=== PATIENT | male | born 1980 | race African-American/Black ===

== ENCOUNTER 2016-08-03 09:46 | Inpatient (IN) | payer BC ==
[~2016-08-03] VITALS: Ht 185.4 cm; Wt 114.2 kg
[2016-08-04] MEDS ORDERED: IBUP200C PO (10:51)
[2016-08-31] MEDS: CHLORHEXIDINE GLUCONATE 4% SOLN 120 ML BTL TOP SCH (05:45)
[2016-08-31 05:54] VITALS: BP 161/81; PULSE 87; RESP 20; TEMP 98.7; O2SAT 100
[2016-08-31] MEDS ORDERED: INSULIN HUMAN REGULAR 1,000 UNITS/10 ML VIAL SQ PRN (06:00)
[2016-08-31] MEDS ORDERED: METOPROLOL TARTRATE 25 MG TAB PO PRN (06:00)
[2016-08-31] MEDS ORDERED: ceFAZolin 2 GM PREMIX 50 ML IV SCH (06:00)
[2016-08-31] MEDS ORDERED: MIDAZOLAM HCL 5 MG/5 ML VIAL ONE (06:35)
[2016-08-31] MEDS ORDERED: ACETAMINOPHEN 1000 MG/100 ML VIAL IV ONE (06:54)
[2016-08-31] MEDS ORDERED: FAMOTIDINE 20 MG/2 ML VIAL ONE (06:54)
[2016-08-31] MEDS: TRANEXAMIC ACID INJ 1,135 MG in SODIUM CHLORIDE 0.9% INJ 100 ML IV SCH ×2 (07:00→07:32)
[2016-08-31] MEDS: EXPAREL PERI-ARTICULAR INJECTION (TOTAL VOL. 100 ML) P-ARTICULR SCH ×4 (07:00→07:45)
[2016-08-31] MEDS ORDERED: LACTATED RINGER'S 1000 ML IV SCH (07:00)
[2016-08-31] MEDS ORDERED: SODIUM CHLORID 0.9% 500 ML IV SCH (07:00)
[2016-08-31] MEDS ORDERED: GENTAMICIN SULFATE 80 MG/2 ML VIAL IRRIGATION ONE (08:12)
[2016-08-31] MEDS ORDERED: ZOLPIDEM TARTRATE 5 MG TAB PO PRN (10:00)
[2016-08-31] MEDS ORDERED: ACETAMINOPHEN/HYDROcodone 325 MG/7.5 MG TAB PO PRN (10:00)
[2016-08-31] MEDS ORDERED: TRANEXAMIC ACID INJ 0 MG in SODIUM CHLORIDE 0.9% INJ 100 ML IV SCH (10:00)
[2016-08-31] MEDS ORDERED: TRANEXAMIC ACID INJ 1,135 MG in SODIUM CHLORIDE 0.9% INJ 100 ML IV SCH (10:00)
[2016-08-31] MEDS ORDERED: MORPHINE SULFATE 4 MG/ML INJ IV PUSH PRN (10:00)
[2016-08-31] MEDS ORDERED: MAGNESIUM HYDROXIDE SUSP 30 ML CUP PO PRN (10:00)
[2016-08-31] MEDS ORDERED: SODIUM CHLORIDE 0.9% FLUSH 5 ML FLUSH IVF PRN (10:00)
[2016-08-31] MEDS ORDERED: ONDANSETRON HCL 4 MG/2 ML VIAL IVP PRN (10:00)
[2016-08-31] MEDS ORDERED: DO NOT ADM ANY ANTICOAGULANT DRUGS XX PRN (10:15)
[2016-08-31] MEDS ORDERED: Post-op Orders (for Pharmacy) MISC XX ONE (10:15)
[2016-08-31] MEDS ORDERED: fentaNYL CITRATE 250 MCG/5 ML AMP ONE (10:20)
[2016-08-31] MEDS: LACTATED RINGER'S 1000 ML INJ 1,000 ML IV SCH ×2 (10:38→21:54)
[2016-08-31] MEDS: KETOROLAC TROMETHAMINE 30 MG/ML (IVP) VIAL IVP SCH ×3 (10:52→21:54)
--- NOTE | 2016-08-31 10:57 | RADRPT ---
EXAM DATE/TIME: 08/31/2016 10:17 [place] COMPARISON: No previous studies available for comparison. INDICATIONS : Knee pain. Post right knee replacement MEDICAL HISTORY : None. SURGICAL HISTORY : None. ENCOUNTER: Initial ACUITY: 1 day PAIN SCORE: 0/10 LOCATION: Right knee FINDINGS & CONCLUSION; Two view examination of the right knee demonstrates the patient has had a total knee arthroplasty. T his is in excellent position. Tibial spaces are good position. There is no complication. Luis Manuel Hill MD on August 31, 2016 at 10:54 Board Certified Radiologist. This report was verified electronically.
[2016-08-31] MEDS ORDERED: *LABETALOL HCL 100 MG/20 ML VIAL PERIprocedural Use ONLY ONE (11:35)
[2016-08-31] MEDS ORDERED: LACTATED RINGER'S 1000 ML INJ 1,000 ML IV ONE (12:00)
[2016-08-31] MEDS ORDERED: ONDANSETRON HCL 4 MG/2 ML VIAL IV PUSH ONE (12:00)
[2016-08-31] MEDS ORDERED: NEOSTIGMINE 3 MG/3 ML SYR IV ONE (12:00)
[2016-08-31] MEDS ORDERED: PROPOFOL 200 MG/20 ML AMP IV ONE (12:00)
[2016-08-31] MEDS ORDERED: *ENALAPRILAT 1.25 MG/ML VIAL PERIprocedural Use ONLY ONE (12:09)
[2016-08-31] MEDS ORDERED: ROPIVACAINE 0.5% PF INJ 30 ML VIAL NB ONE (12:27)
[2016-08-31] MEDS ORDERED: DEXAMETHASONE SOD PHOS PF 10 MG/ML VIAL IV ONE (12:27)
[2016-08-31 12:50] VITALS: BP 131/89; PULSE 93; RESP 16; TEMP 97.5; O2SAT 100
[2016-08-31 16:00] VITALS: BP 142/78; PULSE 67; RESP 16; TEMP 98; O2SAT 94
--- NOTE | 2016-08-31 16:55 | PD.CONS ---
HPI Service [facility] Consult Requested By Dr. Rodriguez Reason for Consult Medical management Primary Care Physician Sesar Ball M.D. Diagnoses: (1) Primary osteoarthritis of right knee (2) Sickle cell trait History of Present Illness 36-year-old male who sustained a right knee injury while playing football 2 years ago and has been having issues with right knee pain since then. Apparently the patient developed significant osteoarthritis on the right knee. He has been having severe issue with the knee to the point where he failed conservative measures and was admitted to the hospital for right total knee replacement. Patient is seen postop. I reviewed all available medical record in the EMR. He reports a history of sickle cell trait. Previously was seen by a brim flexer. He has no active issue related to the sickle cell trait. Currently he is feeling well. Pain is controlled. He denies nausea or vomiting. Review of Systems Constitutional: DENIES: Fever, Chills Musculoskeletal: COMPLAINS OF: Joint pain, Stiffness Integumentary: DENIES: Rash Other All other systems reviewed and are negative. Past Family Social History Allergies: Coded Allergies: No Known Allergies (Verified , 08/31/16) Past Medical History Sickle cell trait Past Surgical History Right total knee arthroplasty Reported Medications Reported Meds & Active Scripts Active Reported Ibuprofen 200 Mg Cap 200 Mg PO Q4H PRN Family History Reviewed and noncontributory. Social History Patient denies tobacco, alcohol, or illicit drug use. Physical Exam Vital Signs Vital Signs Date Time Temp Pulse Resp B/P Pulse Ox O2 Delivery O2 Flow Rate FiO2 08/31/16 12:56 Nasal Cannula 2.00 08/31/16 12:50 97.5 93 16 131/89 100 08/31/16 12:30 92 16 149/86 99 Nasal Cannula 2 08/31/16 12:15 98.3 98 13 164/92 99 Nasal Cannula 2 08/31/16 12:00 89 18 174/99 99 Nasal Cannula 2 08/31/16 11:30 80 12 184/86 99 Nasal Cannula 2 08/31/16 11:15 86 12 171/98 99 Nasal Cannula 2 08/31/16 11:00 75 12 171/96 99 Nasal Cannula 2 08/31/16 10:45 85 19 155/94 98 Nasal Cannula 2 08/31/16 10:30 94 17 172/93 98 Nasal Cannula 2 08/31/16 10:15 98 18 155/86 95 Nasal Cannula 2 08/31/16 10:12 98.1 94 15 177/88 96 Simple Mask 6 08/31/16 06:45 78 16 146/88 99 08/31/16 06:30 78 16 169/91 99 08/31/16 06:25 99 Nasal Cannula 3 08/31/16 06:25 99.0 83 16 157/97 99 08/31/16 05:54 98.7 87 20 161/81 100 Physical Exam GENERAL: This is a well-nourished, well-developed patient, in no apparent distress. SKIN: No rashes, ecchymoses or lesions. Cool and dry. HEAD: Atraumatic. Normocephalic. No temporal or scalp tenderness. EYES: Pupils equal round and reactive. Extraocular motions intact. No scleral icterus. No injection or drainage. ENT: Nose without bleeding, purulent drainage or septal hematoma. Throat without erythema, tonsillar hypertrophy or exudate. Uvula midline. Airway patent. NECK: Trachea midline. No JVD or lymphadenopathy. Supple, nontender, no meningeal signs. CARDIOVASCULAR: Regular rate and rhythm without murmurs, gallops, or rubs. RESPIRATORY: Clear to auscultation. Breath sounds equal bilaterally. No wheezes , rales, or rhonchi. GASTROINTESTINAL: Abdomen soft, non-tender, nondistended. No hepato-splenomegaly , or palpable masses. No guarding. MUSCULOSKELETAL: Right knee is in a postop splint. There is a drain in place. Neurovascularly intact at the toes. NEUROLOGICAL: Awake and alert. Cranial nerves II through XII intact. Motor and sensory grossly within normal limits. Five out of 5 muscle strength in all muscle groups. Normal speech. Laboratory Laboratory Tests Test 08/31/16 06:00 Blood Type O NEGATIVE Antibody Screen NEGATIVE Blood Bank Comment Assessment and Plan Problem List: (1) Primary osteoarthritis of right knee ICD Code: M17.11 Status: Acute (2) Status post total right knee replacement ICD Code: Z96.651 Status: Acute (3) Sickle cell trait ICD Code: D57.3 Status: Acute Assessment and Plan 36-year-old male Patient is status post total right knee arthroplasty. - Continue routine postoperative care per orthopedics. Pain control. Patient has a drain in place. Monitor output. - Physical therapy per protocol. Sickle cell trait: Has not been an active issue for the patient. Will follow up on his H&H in the morning. GI prophylaxis: Stool softener PRN constipation. DVT PPx: Xarelto per orthopedics Jessica Stanton MD Aug 31, 2016 16:55
[2016-08-31 19:00] VITALS: BP 125/71; PULSE 97; RESP 16; TEMP 97.7; O2SAT 100
[2016-08-31] MEDS: SODIUM CHLORIDE 0.9% FLUSH 5 ML FLUSH IVF SCH (20:32)
--- NOTE | 2016-08-31 20:50 | HHI.FF ---
Face to Face Verification Diagnosis: (1) Status post total right knee replacement Physical Therapy Gait training Knee: Total knee, Protocol: Right, Gait training, Full weight bearing Right LE Weight Bearing: WB as tolerated Right LE Range of Motion: Active ROM (AROM, AAROM, PROM, PRE. ROM goal is 0 to 135 degrees. ROM in the OR was 0 to 145 degrees.) Nursing Nursing: Dressing changes Dressing Changes: Daily dressing change, Coverderm/Primapore Additional Instructions Remove steristrips on postop day 14. I have seen patient Laureano Peñaloza Jr Anatoly on 08/31/16. My clinical findings support the need for the requested home health care services because: Ltd mobility - disease progression Limited ability to care for self High risk of falls I certify that my clinical findings support that this patient is homebound because: Post-op weakness Unsteady gait/balance Unsafe to leave home unassisted Chelsi Rodriguez MD (Charles) Aug 31, 2016 20:50
[2016-09-01] VITALS (7 sets, daily range): BP systolic 113–153; BP diastolic 63–78; PULSE 88–104; RESP 16–18; TEMP 98–99.7; O2SAT 97–100
[2016-09-01] MEDS: KETOROLAC TROMETHAMINE 30 MG/ML (IVP) VIAL IVP SCH ×4 (03:47→23:18)
[2016-09-01] MEDS: CHLORHEXIDINE GLUCONATE 4% SOLN 120 ML BTL TOP SCH (05:45)
[2016-09-01 07:33] LABS: HEMATOCRIT 30.2 % (39.0-51.0)
[2016-09-01 07:39] LABS: REVIEW FLAG FINAL
--- NOTE | 2016-09-01 07:42 | PD.ONC.PN ---
Subjective Subjective Remarks I was asked to see Mr. Ledbetter postop given his history of sickle cell trait. Sickle cell trait status was confirmed on hemoglobin electrophoresis performed in July 2016. The patient is now status post right total knee replacement which was performed on 08/31/2016. He reports feeling well, denies significant pain and reports being up out of bed and walking about 170 feet yesterday. Currently, the drain is in place the right knee. Objective Data Date Time Temp Pulse Resp B/P Pulse Ox O2 Delivery O2 Flow Rate FiO2 09/01/16 04:00 98.4 91 16 122/71 100 09/01/16 00:09 98.0 100 16 138/78 100 08/31/16 19:00 97.7 97 16 125/71 100 08/31/16 18:19 Nasal Cannula 2.00 08/31/16 16:00 98.0 67 16 142/78 94 08/31/16 16:00 98.0 67 16 142/78 94 08/31/16 12:56 Nasal Cannula 2.00 08/31/16 12:50 97.5 93 16 131/89 100 08/31/16 12:30 92 16 149/86 99 Nasal Cannula 2 08/31/16 12:15 98.3 98 13 164/92 99 Nasal Cannula 2 08/31/16 12:00 89 18 174/99 99 Nasal Cannula 2 08/31/16 11:30 80 12 184/86 99 Nasal Cannula 2 08/31/16 11:15 86 12 171/98 99 Nasal Cannula 2 08/31/16 11:00 75 12 171/96 99 Nasal Cannula 2 08/31/16 10:45 85 19 155/94 98 Nasal Cannula 2 08/31/16 10:30 94 17 172/93 98 Nasal Cannula 2 08/31/16 10:15 98 18 155/86 95 Nasal Cannula 2 08/31/16 10:12 98.1 94 15 177/88 96 Simple Mask 6 Imaging Studies Last 24 hours Impressions Knee X-Ray 08/31/16 0952 Signed Impressions: Service Date/Time: Wednesday, August 31, 2016 10:17 - CONCLUSION: MD Administered Medications Medications (Trade) Dose Ordered Sig/Christina Route PRN Reason Start Time Stop Time Status Last Admin Dose Admin Lactated Ringer's (Lr 1000 ml Inj) 1,000 ml @ 80 mls/hr [id number] IV 1/31/17 09:52 08/31/16 21:54 Ketorolac Tromethamine (Toradol Inj) 15 mg Q6H IVP 08/31/16 10:00 09/02/16 04:01 09/01/16 03:47 Objective Remarks GENERAL: Young male laying in bed, no acute distress, surgical dressing on right knee, his right leg is in a machine which is bending the leg. SKIN: Warm and dry. HEAD: Normocephalic. EYES: No scleral icterus. No injection or drainage. NECK: Supple, trachea midline. No JVD or lymphadenopathy. LYMPHATIC: No adenopathy. CARDIOVASCULAR: Regular rate and rhythm without murmurs. RESPIRATORY: Breath sounds equal bilaterally. No accessory muscle use. GASTROINTESTINAL: Abdomen soft, non-tender, nondistended. EXTREMITIES: No cyanosis, or edema. MUSCULOSKELETAL: Adequate muscle tone. NEUROLOGICAL: No obvious focal deficit. Awake, alert, and oriented x3. PSYCHIATRIC: Appropriate mood and affect; insight and judgment normal. Assessment/Plan Assessment 36-year-old male postop day 1 following right total knee replacement. He has hemoglobin sickle cell trait. He has been an asymptomatic carrier, the patient's father has sickle cell disease. Preoperatively the patient underwent hemoglobin electrophoresis and a sickle cell fraction was less than 30%. His postoperative period has thus far been uncomplicated. Hemoglobin and hematocrit levels are pending from this morning. Plan 1. Hemoglobin sickle cell trait: No specific therapeutic intervention is required. I stopped in to see him as a courtesy upon the request of his orthopedic surgeon. Await biopsy/pathology results from the synovial membrane. Await hemoglobin and hematocrit levels, he wants to be managed no different than any of the patient with postoperative anemia. Anticoagulation per orthopedics protocol for DVT prophylaxis. [place] Begum MD Sep 01, 2016 07:42
--- NOTE | 2016-09-01 07:42 | PD.ORT.PN ---
Subjective Post Op Day #: 1 Subjective Remarks He is doing well. There is very little pain at this time. Range of Motion -10 to 90 degrees. Distance Walked 120 feet. Objective Vitals Vital Signs Date Time Temp Pulse Resp B/P Pulse Ox O2 Delivery O2 Flow Rate FiO2 09/01/16 04:00 98.4 91 16 122/71 100 09/01/16 00:09 98.0 100 16 138/78 100 08/31/16 19:00 97.7 97 16 125/71 100 08/31/16 18:19 Nasal Cannula 2.00 08/31/16 16:00 98.0 67 16 142/78 94 08/31/16 16:00 98.0 67 16 142/78 94 08/31/16 12:56 Nasal Cannula 2.00 08/31/16 12:50 97.5 93 16 131/89 100 08/31/16 12:30 92 16 149/86 99 Nasal Cannula 2 08/31/16 12:15 98.3 98 13 164/92 99 Nasal Cannula 2 08/31/16 12:00 89 18 174/99 99 Nasal Cannula 2 08/31/16 11:30 80 12 184/86 99 Nasal Cannula 2 08/31/16 11:15 86 12 171/98 99 Nasal Cannula 2 08/31/16 11:00 75 12 171/96 99 Nasal Cannula 2 08/31/16 10:45 85 19 155/94 98 Nasal Cannula 2 08/31/16 10:30 94 17 172/93 98 Nasal Cannula 2 08/31/16 10:15 98 18 155/86 95 Nasal Cannula 2 08/31/16 10:12 98.1 94 15 177/88 96 Simple Mask 6 I/O 08/31/16 08/31/16 08/31/16 09/01/16 09/01/16 09/01/16 07:00 15:00 23:00 07:00 15:00 23:00 Intake Total 2085 ml 922 ml 1244 ml Output Total 840 ml 880 ml 670 ml Balance 1245 ml 42 ml 574 ml Intake Oral 555 ml 480 ml 480 ml IV Total 330 ml 442 ml 764 ml Other 1200 ml Output Urine Total 700 ml 400 ml Drainage Total 140 ml 180 ml 270 ml Estimated Blood Loss 700 ml # Voids 2 # Bowel Movements 0 0 0 Imaging Knee x-ray looks good. Last 24 hours Impressions Knee X-Ray 08/31/16 0952 Signed Impressions: Service Date/Time: Wednesday, August 31, 2016 10:17 - CONCLUSION: Objective Remarks He is resting comfortably, supine in bed, in the CPM. The original dressing is dry and intact. The neurovascular status is intact. Assessment & Plan Ortho Post Op Day #: 1 Problem List: (1) Status post total right knee replacement Plan: Continue postop care and PT. We have discussed the operative findings and procedure. Assessment and Plan Condition: Good. Orthopaedically stable. DVT prophylaxis: CARROLL stockings, sequentials, mobilization, Exparel. I have discussed the patient with Dr. Begum. His input is appreciated. Discharge plans: home with [facility], probably tomorrow. He has an appointment. Chelsi Rodriguez MD (Charles) Sep 01, 2016 07:42
[2016-09-01] MEDS ORDERED: WALKER WHEELS/F1 MIS (08:10)
[2016-09-01] MEDS ORDERED: MISC-163 (08:10)
[2016-09-01] MEDS ORDERED: HYDR-3580 PO (08:12)
[2016-09-01] MEDS ORDERED: XARE10TA PO (08:12)
[2016-09-01] MEDS: SODIUM CHLORIDE 0.9% FLUSH 5 ML FLUSH IVF SCH ×2 (09:27→20:36)
[2016-09-01] MEDS: RIVAROXABAN 10 MG TAB PO SCH (09:27)
[2016-09-01] MEDS: LACTATED RINGER'S 1000 ML INJ 1,000 ML IV SCH ×2 (10:52→23:22)
[2016-09-01] MEDS: ACETAMINOPHEN/HYDROcodone 325 MG/7.5 MG TAB PO PRN (13:37)
--- NOTE | 2016-09-01 16:13 | HHI.PR ---
Subjective Remarks Patient seen in follow-up for osteoarthritis status post right knee replacement He reports that he is feeling well. Pain is controlled. No nausea or vomiting. Objective Vitals Vital Signs Date Time Temp Pulse Resp B/P Pulse Ox O2 Delivery O2 Flow Rate FiO2 09/01/16 11:45 98.9 91 18 153/67 99 09/01/16 09:27 Room Air 09/01/16 08:00 98.0 88 18 122/63 100 09/01/16 04:00 98.4 91 16 122/71 100 09/01/16 00:09 98.0 100 16 138/78 100 08/31/16 19:00 97.7 97 16 125/71 100 08/31/16 18:19 Nasal Cannula 2.00 I/O 08/31/16 08/31/16 08/31/16 09/01/16 09/01/16 09/01/16 07:00 15:00 23:00 07:00 15:00 23:00 Intake Total 2085 ml 922 ml 1244 ml Output Total 840 ml 880 ml 670 ml Balance 1245 ml 42 ml 574 ml Intake Oral 555 ml 480 ml 480 ml IV Total 330 ml 442 ml 764 ml Other 1200 ml Output Urine Total 700 ml 400 ml Drainage Total 140 ml 180 ml 270 ml Estimated Blood Loss 700 ml # Voids 2 # Bowel Movements 0 0 0 Result Diagram: 09/01/16 0659 Imaging Last Impressions Knee X-Ray 08/31/16 0952 Signed Impressions: Service Date/Time: Wednesday, August 31, 2016 10:17 - CONCLUSION: Objective Remarks GENERAL: This is a well-nourished, well-developed patient, in no apparent distress. CARDIOVASCULAR: Normal rate and regular rhythm without murmurs, gallops, or rubs. RESPIRATORY: Good respiratory efforts. Breath sounds equal and clear to auscultation bilaterally. GASTROINTESTINAL: Abdomen soft, non-tender, non-distended. Normal active bowel sounds MUSCULOSKELETAL: Right knee postop. It is wrapped. There is a drain in place. Neurovascularly intact distally of the toes. NEURO: Alert & Oriented x4 to person, place, time, situation. Moves all ext x4 PSYCH: Appropriate mood and affect. A/P Problem List: (1) Primary osteoarthritis of right knee ICD Code: M17.11 Status: Acute (2) Status post total right knee replacement ICD Code: Z96.651 Status: Acute (3) Sickle cell trait ICD Code: D57.3 Status: Acute Assessment and Plan 36-year-old male Patient is status post total right knee arthroplasty. - Continue routine postoperative care per orthopedics. Patient has a drain in place. Monitor output. - Physical therapy per protocol. - Pain control. Sickle cell trait: Patient was seen by his broadcast producer, reviewed the notes of Dr. Begum. Appreciate recommendations. No other specific treatment required at this time. GI prophylaxis: Stool softener PRN constipation. DVT prophylaxis: Xarelto per orthopedics. Discharge Planning Per orthopedics. Jessica Stanton MD Sep 01, 2016 16:13
[2016-09-01] MEDS: DOCUSATE SODIUM 100 MG CAP PO SCH (20:32)
[2016-09-02] MEDS: CHLORHEXIDINE GLUCONATE 4% SOLN 120 ML BTL TOP SCH (03:29)
[2016-09-02 03:40] VITALS: BP 132/76; PULSE 90; RESP 16; TEMP 98.6; O2SAT 98
[2016-09-02] MEDS: KETOROLAC TROMETHAMINE 30 MG/ML (IVP) VIAL IVP SCH (03:40)
[2016-09-02 06:03] LABS: HEMATOCRIT 26.2 % (39.0-51.0)
[2016-09-02 06:09] LABS: REVIEW FLAG FINAL
--- NOTE | 2016-09-02 07:32 | PD.ORT.PN ---
Subjective Post Op Day #: 2 Subjective Remarks He is doing well. There is very little pain at this time. He has done well with PT. Range of Motion 0 to 87 degrees. Distance Walked 150 feet. Objective Vitals Vital Signs Date Time Temp Pulse Resp B/P Pulse Ox O2 Delivery O2 Flow Rate FiO2 09/02/16 03:40 98.6 90 16 132/76 98 09/01/16 23:30 99.0 97 16 145/68 97 09/01/16 19:25 99.2 104 17 135/67 100 09/01/16 16:00 99.7 99 18 113/68 98 09/01/16 11:45 98.9 91 18 153/67 99 09/01/16 09:27 Room Air 09/01/16 08:00 98.0 88 18 122/63 100 I/O 09/01/16 09/01/16 09/01/16 09/02/16 09/02/16 09/02/16 07:00 15:00 23:00 07:00 15:00 23:00 Intake Total 1244 ml 720 ml 720 ml 600 ml Output Total 670 ml 700 ml 1360 ml 485 ml Balance 574 ml 20 ml -640 ml 115 ml Intake Oral 480 ml 720 ml 720 ml 600 ml IV Total 764 ml Output Urine Total 400 ml 700 ml 1100 ml 425 ml Drainage Total 270 ml 260 ml 60 ml # Bowel Movements 0 0 0 0 Result Diagram: 09/02/16 0448 Imaging Knee x-ray looks good. Last 24 hours Impressions Knee X-Ray 08/31/16 0952 Signed Impressions: Service Date/Time: Wednesday, August 31, 2016 10:17 - CONCLUSION: Objective Remarks He is resting comfortably, supine in bed, in the CPM. The original dressing is dry and intact. The neurovascular status is intact. Assessment & Plan Ortho Post Op Day #: 2 Problem List: (1) Status post total right knee replacement Plan: Continue postop care and PT. Remove drain. Dressing change. Assessment and Plan Condition: Good. Orthopaedically stable. DVT prophylaxis: CARROLL stockings, sequentials, mobilization, Exparel. Discharge plans: home with [facility], probably tomorrow. He has an appointment. Rx: [place] 7.5/325. Chelsi Rodriguez MD (Charles) Sep 02, 2016 07:32
[2016-09-02 08:00] VITALS: BP 127/61; PULSE 94; RESP 19; TEMP 97.6; O2SAT 99
[2016-09-02] MEDS: ACETAMINOPHEN/HYDROcodone 325 MG/7.5 MG TAB PO PRN ×3 (08:53→16:58)
[2016-09-02] MEDS: RIVAROXABAN 10 MG TAB PO SCH (08:53)
[2016-09-02] MEDS: DOCUSATE SODIUM 100 MG CAP PO SCH (08:53)
[2016-09-02] MEDS: SODIUM CHLORIDE 0.9% FLUSH 5 ML FLUSH IVF SCH (08:55)
--- NOTE | 2016-09-02 11:04 | HHI.PR ---
Subjective Remarks Patient seen in follow-up for osteoarthritis status post right knee replacement. Patient reports that he is feeling okay. Drain was taken out. He is ambulating with physical therapy. No nausea or vomiting. Pain is controlled. Objective Vitals Vital Signs Date Time Temp Pulse Resp B/P Pulse Ox O2 Delivery O2 Flow Rate FiO2 09/02/16 09:53 Room Air 09/02/16 08:00 97.6 94 19 127/61 99 09/02/16 03:40 98.6 90 16 132/76 98 09/01/16 23:30 99.0 97 16 145/68 97 09/01/16 19:25 99.2 104 17 135/67 100 09/01/16 16:00 99.7 99 18 113/68 98 09/01/16 11:45 98.9 91 18 153/67 99 I/O 09/01/16 09/01/16 09/01/16 09/02/16 09/02/16 09/02/16 07:00 15:00 23:00 07:00 15:00 23:00 Intake Total 1244 ml 720 ml 720 ml 600 ml Output Total 670 ml 700 ml 1360 ml 485 ml Balance 574 ml 20 ml -640 ml 115 ml Intake Oral 480 ml 720 ml 720 ml 600 ml IV Total 764 ml Output Urine Total 400 ml 700 ml 1100 ml 425 ml Drainage Total 270 ml 260 ml 60 ml # Bowel Movements 0 0 0 0 Result Diagram: 09/02/16 0448 Objective Remarks GENERAL: This is a well-nourished, well-developed patient, in no apparent distress. CARDIOVASCULAR: Normal rate and regular rhythm without murmurs, gallops, or rubs. RESPIRATORY: Good respiratory efforts. Breath sounds equal and clear to auscultation bilaterally. GASTROINTESTINAL: Abdomen soft, non-tender, non-distended. Normal active bowel sounds MUSCULOSKELETAL: Right knee postop. It is wrapped. Neurovascularly intact distally of the toes. NEURO: Alert & Oriented x4 to person, place, time, situation. Moves all ext x4 PSYCH: Appropriate mood and affect. A/P Problem List: (1) Primary osteoarthritis of right knee ICD Code: M17.11 Status: Acute (2) Status post total right knee replacement ICD Code: Z96.651 Status: Acute (3) Sickle cell trait ICD Code: D57.3 Status: Acute Assessment and Plan 36-year-old male Patient is status post total right knee arthroplasty. - Continue routine postoperative care per orthopedics. - Physical therapy per protocol. - Pain control. Sickle cell trait: Patient was seen by his bar host, reviewed the notes of Dr. Begum. Appreciate recommendations. No other specific treatment required at this time. Continue routine care. GI prophylaxis: Stool softener PRN constipation. DVT prophylaxis: Xarelto per orthopedics. Discharge Planning Per orthopedics. Jessica Stanton MD Sep 02, 2016 11:04
[2016-09-02] MEDS: LACTATED RINGER'S 1000 ML INJ 1,000 ML IV SCH (11:52)
[2016-09-02 12:00] VITALS: BP 157/74; PULSE 101; RESP 19; TEMP 100.4; O2SAT 99
[2016-09-02 16:00] VITALS: BP 141/66; PULSE 104; RESP 18; TEMP 99.3; O2SAT 100
--- NOTE | 2016-09-03 13:45 | MP ---
cc: Barry YIN. DATE OF SURGERY: 08/31/2016 PREOPERATIVE DIAGNOSIS Primary osteoarthritis, right knee POSTOPERATIVE DIAGNOSIS Primary osteoarthritis right knee with pigmented villonodular synovitis. OPERATION PERFORMED Right total knee arthroplasty using Estiven Triathlon prosthesis (uncemented) and total synovectomy, right knee. SURGEON Willard Yin MD MANAGER ETHICS Yoseph Prado, TUNG ANESTHESIA General endotracheal with supplemental adductor canal block and local. INDICATIONS AND FINDINGS This 36-year-old man has had right knee pain for approximately 21 years subsequent to a football injury. His pain has gradually increased so that he is disabled from activities of daily living. He is able to ambulate only short distances because of his pain and has to stop intermittently. He has crepitation in the knee with giving-way, stiffness when sitting, and increased pain with lifting as he tries to walk. He has difficulty with stairs, especially descending. Treatment has included anti-inflammatory agents, analgesics, activity modification, exercise, intraarticular corticosteroids, ambulatory aids, physical therapy and attempts at weight loss. He has not responded to these measures and in spite of his age would like to go ahead with a total knee arthroplasty. Physical findings showed significant swelling in the knee with a large effusion and crepitation on motion. There is medial laxity. Imaging studies including x-rays and MRI showed severe arthritis in the knee with loss of articular cartilage and irregularity in the articular surfaces, particularly in the medial compartment but also in the lateral and patellofemoral compartment. There was subchondral sclerosis on the medial femur and tibia. There were cysts as well. His operative findings showed changes similar to the imaging studies. There was severe arthritis throughout the knee. There was also an unusual synovitis with the synovium being pigmented to a mid to dark brown in multiple areas with areas of smooth synovium and also areas of markedly villous and irregular synovium. This caused an extreme dilatation of the suprapatellar pouch going well above the normal anatomic levels. PROCEDURE The patient had an adductor canal block carried out preoperatively. He was then transferred to the clean-air operating suite where he received prophylactic antibiotic in the form of Ancef and also received tranexamic acid. An attempt at a spinal anesthetic was unsuccessful therefore he had general endotracheal anesthetic administered. He was placed in the supine position on the operating table with a small bolster under the right hip. A pneumatic tourniquet was applied to the right thigh. The limb was then prepped with alcohol, Hibiclens and ChloraPrep and draped in the usual manner with the knee draped free. An appropriate timeout procedure was carried out. Local anesthesia was administered into the incision site prior to making the incision. An anterior incision was then made from about three fingerbreadths above the superior medial pole of the patella down to the tibial tubercle. The incision was deepened through the subcutaneous tissues to the retinacular structures which were exposed medially and laterally. A medial retinacular incision was then made from the superior medial pole of the patella down to the tibial tubercle and up into the quadriceps tendon splitting it longitudinally in the medial one-third. The patella was reflected. The interior of the knee was carefully inspected. After medial and lateral dissection was carried out synovectomy was initiated and then subsequently completed. Hemostasis was carefully achieved with electrocautery. The infrapatellar fat pad was debulked. The posterior surface of the patella was excised. A patella protector was applied. A fenestration was made in the distal end of the femur with the appropriate drill. The distal femoral cutting guide and jig were then assembled for a 5 degree, 8 mm cut. The cutting block was stabilized with pins. The jig was removed. The distal femoral cut was completed with the oscillating saw. The sizing guide was then positioned along [place]'s line in the epicondylar axis. The size of the femur was determined to be a size 6. The size 6 four-in-one cutting block was then positioned in place and stabilized with pins. Anterior and posterior cuts were completed followed by posterior and anterior chamfer cuts using the oscillating saw. Osteophytes were trimmed. The fenestration in the femur was plugged with bone plug. Attention was directed to the tibia. A tibial drill hole had already been made at the same time as the femoral drill hole. The intermedullary referencing guide [place] was dropped into this and then the cutting block stabilized with a pin for rotation. The depth of cut was then verified off the lateral side. After checking this it was found that it needed to be dropped another 2 mm because this would have opened up into the medial compartment where there was significant degeneration. After this was done the proximal tibial cut was then completed with the oscillating saw. The proximal tibial bone was removed. The cut was cleaned. The osteophytes were trimmed. Posterior femoral osteophytes were also trimmed. Medial and lateral meniscectomies were completed. Local anesthesia was administered throughout the knee with Exparel. The tibial baseplate was determined to be appropriate for a size 7. An 11 mm spacer was tested first but this was inadequate and needed to be increased to a 13 mm spacer. The femoral component was positioned in place and seated appropriately. The tibial baseplate rotation was positioned in place with the femoral component in place. This was then stabilized with pins. The alignment was checked and appeared to be appropriate. A patella drill guide was positioned and drill holes made for the 38 mm patella. The range of motion was checked and was easily 0 degrees extension to 140 degrees of flexion going to 145 degrees with a small push. Femoral drill holes were made. The patella and femoral trials were removed. The tibial spacer was removed. The tibial punch was impacted through the tibia followed by placement of the tibial drill guide in place. Drill holes were made. After removal of the drill guide multiple drill holes were made in the eburnated bone of the femur and tibia. The cysts were then packed with bone graft. Cut ends of bone were cleaned with pulse lavage. The tibial baseplate which was a size 7 tritanium baseplate was impacted into place and seated appropriately. The 13 mm spacer was inserted into this and impacted into place. The femoral component was then seated in place and impacted into place. The patella button was then positioned in place and stabilized. The prosthesis used was a size 7 tibial baseplate of tritanium with a 13 mm cruciate-retaining X3 polyethylene spacer. The femur was a right uncemented cruciate retaining femoral component size 6. The patella was a 38 mm asymmetric tritanium backed patella. The range of motion of the actual prosthesis was checked and was found to be 0 degrees extension to 145 degrees of flexion by gravity and 150 degrees with a small amount of pressure. The stability was excellent throughout the entire range of motion. Tracking of the patella was appropriate. The remainder of the Exparel was then injected throughout the knee. Drains were brought out the superolateral aspect of the suprapatellar pouch. Wound closure then commenced using 0 Vicryl interrupted [id number] sutures for the retinacular structures, 2-0 Vicryl interrupted simple sutures with buried knots for the subcutaneous tissues and 4-0 Monocryl continuous subcuticular closure for the skin. The wound was then dressed with Steri-Strips followed by dry dressing, sterile Sof-Rol, cooling pad, further sterile Sof-Rol and Miller bandage from the base of the toes to mid thigh. The patient was transferred from the operating room to the recovery room in satisfactory condition having tolerated the procedure well. Counts were correct. Specimen synovium. Estimated blood loss 750 mL. MD CLAUDE Hoang/[place] /10:02 AM /1:23 PM
== END 2016-09-02 20:30 | disposition home health service (06) | DRG 470 ==
LOC: HSDI 08-31 05:08 → N06A 08-31 12:48
PROVIDERS: ADMIT Orthopaedic Surgery; ATTEND Orthopaedic Surgery
PROC: 0SBC0ZZ Excision of Right Knee Joint, Open Approach (ICD-10-PCS; 2016-08-31)
PROC: 0QRD0JZ Replacement of Right Patella with Synthetic Substitute, Open Approach (ICD-10-PCS; 2016-08-31)
PROC: 3E0T3CZ (ICD-10-PCS; 2016-08-31)
PROC: 0SRC0JA Replacement of Right Knee Joint with Synthetic Substitute, Uncemented, Open Approach (ICD-10-PCS; principal; 2016-08-31 06:55)
PROC: 30233N1 Transfusion of Nonautologous Red Blood Cells into Peripheral Vein, Percutaneous Approach (ICD-10-PCS; 2016-09-02)
DX: M17.11 Unilateral primary osteoarthritis, right knee (principal); D62 Acute posthemorrhagic anemia; D57.3 Sickle-cell trait; M25.761 Osteophyte, right knee; R55 Syncope and collapse; I95.1 Orthostatic hypotension; Z96.651 Presence of right artificial knee joint; Z98.890 Other specified postprocedural states; D72.829 Elevated white blood cell count, unspecified; Z79.02 Long term (current) use of antithrombotics/antiplatelets
CPT/HCPCS: 73560; 85014; 85018; 86850; 86900; 86901; 88305; 88311; 94150; C1776; C9290; J0131; J0690; J1100; J1580; J1885; J2250; J2270; J2405; J2710; J2795; J3010; J7120

== ENCOUNTER → 2016-08-04 | Outpatient (CLI) | payer BC ==
[~2016-08-04] MED LIST: HYDR-3580 PO; IBUP200C PO; MISC-163; WALKER WHEELS/F1 MIS; XARE10TA PO
--- NOTE | 2016-08-04 12:24 | EKG ---
Date Performed: 08/04/2016 Time Performed: 09:18:20 PTAGE: 36 years EKG: Sinus rhythm POSSIBLE RIGHT VENTRICULAR CONDUCTION DELAY BORDERLINE ECG PREVIOUS TRACING : 01/19/2016 01.14 DOCTOR: Luis Manuel Loving Interpretating Date/Time 08/04/2016 12:21:08
== END ==
LOC: CPRE 08:57
PROVIDERS: ATTEND Orthopaedic Surgery
DX: Z01.810 Encounter for preprocedural cardiovascular examination (principal); M17.11 Unilateral primary osteoarthritis, right knee; M79.609 Pain in unspecified limb
CPT/HCPCS: 93005

== ENCOUNTER 2016-09-03 09:43 | Inpatient (IN) | payer BC ==
[~2016-09-03] VITALS: Ht 182.9 cm; Wt 100.0 kg
[2016-09-03] VITALS (9 sets, daily range): BP systolic 118–159; BP diastolic 59–71; PULSE 103–120; RESP 16–20; TEMP 98.7–100.8; O2SAT 95–100
[~2016-09-03 09:43] MED LIST changes: -IBUP200C PO
--- NOTE | 2016-09-03 09:55 | PD ---
HPI Chief Complaint: SYCOPE Time Seen by Provider: 09:54 Travel History International Travel<30 days: No Contact w/Intl Traveler<30days: No Traveled to known affect area: No History of Present Illness HPI 36-year-old Afro-[place] male coming in status post total right knee replacement [address] Rodriguez did the surgery. Patient got up to go to urinate is morning with walker and his , after finishing urinating he had a syncopal event where he fell backwards with his breaking his fall, but was unresponsive for approximately 1 minute according to his . Currently the patient feels himself, although his heart rate is noted to be 104 on his vitals although blood pressure is normal. He denies any significant pain other than his right knee which is no different than previous. It is reported the patient had a similar syncopal event after performing physical therapy while inpatient. Patient was discharged last evening to home. Patient is currently on hydrocodone, and antibiotic, and Xeralto. Patient has no history of seizure disorder or syncope in the past. He has sickle cell trait but not sickle cell disease. He has no known drug allergies PFSH Past Medical History Arthritis: Yes (hx of) Cancer: No Cardiovascular Problems: No Diabetes: No Diminished Hearing: No Endocrine: No Genitourinary: No Hepatitis: No Hiatal Hernia: No Immune Disorder: No Musculoskeletal: Yes (RIGHT KNEE, current admission sx) Neurologic: No Psychiatric: Yes Reproductive: No Respiratory: Yes Immunizations Current: No Thyroid Disease: No Past Surgical History Abdominal Surgery: No AICD: No Body Medical Devices: possibly current admission Cardiac Surgery: No Ear Surgery: No Endocrine Surgery: No Eye Surgery: No Genitourinary Surgery: No Gynecologic Surgery: No Joint Replacement: No Oral Surgery: No Pacemaker: No Thoracic Surgery: No Social History Alcohol Use: No Tobacco Use: No Substance Use: No Allergies-Medications (Allergen,Severity, Reaction): Coded Allergies: No Known Allergies (Verified , 08/31/16) Reported Meds & Prescriptions Reported Meds & Active Scripts Active Xarelto (Rivaroxaban) 10 Mg Tab 10 Mg PO Q24H Hydrocodone-Acetaminophen 7.5-325 mg Tab 1 Tab PO Q4H PRN Walker with Front Wheels (Device) 1 Mis Mis 1 Ea .ROUTE DIRECTED 3-in-1 Bedside Toilet (Device) 1 Mis Mis 1 Ea .ROUTE DIRECTED Review of Systems Except as stated in HPI: all other systems reviewed are Neg General / Constitutional: No: Fever Eyes: No: Visual changes HENT: No: Headaches Cardiovascular: No: Chest Pain or Discomfort Respiratory: No: Shortness of Breath Gastrointestinal: No: Abdominal Pain Genitourinary: No: Dysuria Musculoskeletal: No: Pain Skin: No Rash Neurologic: Positive: Syncope, No: Weakness Psychiatric: No: Depression Endocrine: No: Polydipsia Hematologic/Lymphatic: No: Easy Bruising Physical Exam Narrative GENERAL: Patient appears alert and oriented in no acute distress. SKIN: Warm and dry. Normal color. Normal turgor. HEAD: Atraumatic. Normocephalic. Nontender. EYES: Pupils equal and round. No scleral icterus. No injection or drainage. ENT: No nasal bleeding or discharge. Mucous membranes pink and moist. Pharynx is normal. Airway is patent. NECK: Trachea midline. No JVD. Neck is supple and nontender. CARDIOVASCULAR: Borderline tachycardic rate and normal rhythm. RESPIRATORY: No accessory muscle use. Clear to auscultation. Breath sounds equal bilaterally. GASTROINTESTINAL: Abdomen soft, non-tender, nondistended. Hepatic and splenic margins not palpable. MUSCULOSKELETAL: Extremities without clubbing, cyanosis, or edema. No obvious deformities. Patient is obvious right knee incision with dressing in place with no active bleeding or signs of wound dehiscence. NEUROLOGICAL: Awake and alert. No obvious cranial nerve deficits. Motor grossly within normal limits. Five out of 5 muscle strength in the arms and legs. Normal speech. PSYCHIATRIC: Appropriate mood and affect; insight and judgment normal. Data Data Last Documented VS Vital Signs Date Time Temp Pulse Resp B/P Pulse Ox O2 Delivery O2 Flow Rate FiO2 09/03/16 10:11 100 Room Air 09/03/16 10:09 98.7 104 16 133/63 Orders Electrocardiogram (09/03/16 10:08) Complete Blood Count With Diff (09/03/16 10:08) Comprehensive Metabolic Panel (09/03/16 10:08) Urinalysis - C+S If Indicated (09/03/16 10:08) Iv Access Insert/Monitor (09/03/16 10:08) Sodium Chloride 0.9% Flush (Ns Flush) (09/03/16 10:15) Sodium Chlor 0.9% 1000 Ml Inj (Ns 1000 M (09/03/16 10:08) Orthostatic Vital Signs (09/03/16 10:08) Type And Screen (09/03/16 12:03) Red Blood Cells (Rbc) (09/03/16 12:03) Sodium Chlor 0.9% 250 Ml Inj (Ns 250 Ml (09/03/16 12:15) Admit Order (Ed Use Only) (09/03/16 12:34) Consult Orthopedic (09/03/16 ) Labs Laboratory Tests Test 09/03/16 11:00 White Blood Count 15.6 TH/MM3 Red Blood Count 3.57 MIL/MM3 Hemoglobin 8.2 GM/DL Hematocrit 26.3 % Mean Corpuscular Volume 73.6 FL Mean Corpuscular Hemoglobin 23.1 PG Mean Corpuscular Hemoglobin 31.3 % Concent Red Cell Distribution Width 14.2 % Platelet Count 229 TH/MM3 Mean Platelet Volume 8.0 FL Neutrophils (%) (Auto) 83.3 % Lymphocytes (%) (Auto) 3.1 % Monocytes (%) (Auto) 11.8 % Eosinophils (%) (Auto) 1.1 % Basophils (%) (Auto) 0.7 % Neutrophils # (Auto) 13.0 TH/MM3 Lymphocytes # (Auto) 0.5 TH/MM3 Monocytes # (Auto) 1.8 TH/MM3 Eosinophils # (Auto) 0.2 TH/MM3 Basophils # (Auto) 0.1 TH/MM3 CBC Comment AUTO DIFF Differential Comment AUTO DIFF CONFIRMED Platelet Estimate NORMAL Platelet Morphology Comment NORMAL Urine Color LIGHT-YELLOW Urine Turbidity CLEAR Urine pH 6.0 Urine Specific [place] 1.007 Urine Protein NEG mg/dL Urine Glucose (UA) NEG mg/dL Urine Ketones NEG mg/dL Urine Occult Blood NEG Urine Nitrite NEG Urine Bilirubin NEG Urine Urobilinogen LESS THAN 2.0 MG/DL Urine Leukocyte Esterase NEG Urine RBC LESS THAN 1 /hpf Urine WBC LESS THAN 1 /hpf Microscopic Urinalysis Comment CULT NOT INDICATED Sodium Level 136 MEQ/L Potassium Level 4.3 MEQ/L Chloride Level 101 MEQ/L Carbon Dioxide Level 28.8 MEQ/L Anion Gap 6 MEQ/L Blood Urea Nitrogen 9 MG/DL Creatinine 1.00 MG/DL Estimat Glomerular Filtration 101 ML/MIN Rate Random Glucose 124 MG/DL Calcium Level 8.8 MG/DL Total Bilirubin 0.6 MG/DL Aspartate Amino Transf 12 U/L (AST/SGOT) Alanine Aminotransferase 21 U/L (ALT/SGPT) Alkaline Phosphatase 53 U/L Total Protein 6.9 GM/DL Albumin 2.9 GM/DL MDM Medical Decision Making Medical Screen Exam Complete: Yes Emergency Medical Condition: Yes Differential Diagnosis Syncopal episode. Vasovagal episode. Possible anemia. Medication reaction. Narrative Course Patient is medically stable at time of exam. Labs ordered including CBC, CMP, and urinalysis. IV access is obtained patient is given 1 L of normal saline bolus. Labs come back showing hemoglobin down to 8.2 from a previous 9.5 two days ago. Patient is also noted to have a mild leukocytosis of 15.6. CMP is unremarkable except for random glucose of 124 and an albumin of 2.9. Urinalysis is unremarkable. EKG shows a possible right ventricular conduction delay with nonspecific ST abnormalities. This is reviewed with Dr. Conley. Patient was discussed with Dr. Conley and it is felt that he needed to be admitted due to his worsening anemia with 2 recorded episodes of syncope. Rectal Guaiac is performed which is negative. 1200 hrs. call was placed to the hospitalist for admission of the patient. A type and screen is ordered and 2 units of blood ordered. They will not be started prior to discussing with the hospitalist. Diagnosis Primary Impression: Symptomatic anemia Additional Impressions: Syncopal episodes Qualified Code: R55 - Vasovagal syncope Status post total right knee replacement Admitting Information Admitting Physician Requests: Admit Mendel Luevano Sep 03, 2016 09:55
[2016-09-03] MEDS ORDERED: SODIUM CHLOR 0.9% 1000 ML INJ 1,000 ML IV ONE (10:08)
[2016-09-03] MEDS ORDERED: SODIUM CHLORIDE 0.9% FLUSH 5 ML FLUSH IVF PRN (10:15)
[2016-09-03 11:14] LABS: BASOPHIL # 0.1 TH/MM3 (0-0.2); BASOPHIL % 0.7 % (0.0-2.0); EOSINOPHIL # 0.2 TH/MM3 (0-0.4); EOSINOPHIL % 1.1 % (0.0-4.0); HEMATOCRIT 26.3 % (39.0-51.0); LYMPH % 3.1 % (9.0-44.0); LYMPHOCYTE # 0.5 TH/MM3 (1.0-4.8); MEAN CELL VOLUME 73.6 FL (80.0-100.0); MEAN CORPUSCULAR HEMOGLOBIN 23.1 PG (27.0-34.0); MEAN CORPUSCULAR HGB CONC 31.3 % (32.0-36.0); MONO % 11.8 % (0.0-8.0); NEUT % 83.3 % (16.0-70.0); PLATELET COUNT 229 TH/MM3 (150-450); RED BLOOD COUNT 3.57 MIL/MM3 (4.50-5.90); RED CELL DISTRIBUTION WIDTH 14.2 % (11.6-17.2); WHITE BLOOD COUNT 15.6 TH/MM3 (4.0-11.0)
[2016-09-03 11:15] LABS: HEMO FLAGS AUTO DIFF
[2016-09-03 11:23] LABS: BLOOD, URINE NEG (NEG); GLUCOSE,URINE NEG (NEG); KETONE, URINE NEG (NEG); NITRITE,URINE NEG (NEG); URINE COLOR LIGHT-YELLOW (YELLW/STRAW)
[2016-09-03 11:28] LABS: COMMENT (UR) CULT NOT INDICATED; CULTURE IF INDICATED CULT NOT INDICATED
[2016-09-03 11:31] LABS: ALT (GPT) 21 U/L (12-78); ANION GAP 6 MEQ/L (5-15); AST (GOT) 12 U/L (15-37); BICARBONATE 28.8 MEQ/L (21.0-32.0); BLOOD UREA NITROGEN 9 MG/DL (7-18); CHLORIDE 101 MEQ/L (98-107); GLOMERULAR FILTRATION RATE 101 ML/MIN (>89); POTASSIUM 4.3 MEQ/L (3.5-5.1); SODIUM (NA) 136 MEQ/L (136-145)
[2016-09-03 11:33] LABS: ALKALINE PHOSPHATASE 53 U/L (45-117); TOTAL BILIRUBIN ADULT 0.6 MG/DL (0.2-1.0)
[2016-09-03 12:10] LABS: SCAN/DIFF AUTO DIFF CONFIRMED
[2016-09-03 12:11] LABS: PLATELET ESTIMATE SMEAR NORMAL (NORMAL); PLATELET MORPHOLOGY NORMAL (NORMAL)
[2016-09-03] MEDS ORDERED: SODIUM CHLOR 0.9% 250 ML INJ 250 ML IV ONE ×2 (12:15→18:00)
[2016-09-03] MEDS ORDERED: SODIUM CHLORIDE 0.9% FLUSH 5 ML FLUSH IV PRN (16:15)
--- NOTE | 2016-09-03 16:26 | HHI.HP ---
[facility] Service [place] [facility] Primary Care Physician Sesar Ball M.D. Admission Diagnosis Syncope/Anemia/S/P Right Knee Replacement Diagnoses: Chief Complaint: syncope Travel History International Travel<30 Days: No Contact w/Intl Traveler <30 Da: No Traveled to Known Affected Are: No History of Present Illness 36-year-old male with hx of sickle cell trait (not disease), recent total knee arthroplasty [address] Rodriguez, presents with syncopal episode today. The patient reports today he got up to use the restroom, then after urinating, he stood up to ambulate back to his room, was holding onto the walker , felt very lightheaded, then all of a sudden lost consciousness. This was witnessed by the . He fell to the left of his walker, hit his head on the bathtub. He was out for maybe 1 minute. He was diaphoretic and confused after the event. He was oriented to self but wasn't making much sense per the . No bladder/bowel incontinence. No reported tremor or seizure activity. He denies any chest pain or shortness of breath prior to the event. He did remember feeling some palpitations afterwards. No recent fevers or chills. He was just discharged from the hospital last night and got home around 9pm. Review of Systems Constitutional: COMPLAINS OF: Diaphoretic episodes, Dizziness, DENIES: Fever, Chills Endocrine: DENIES: Polydipsia, Polyuria, Polyphagia Eyes: DENIES: Blurred vision, Vision loss, Double Vision Ears, nose, mouth, throat: DENIES: Throat pain, Ear Pain, Odynophagia Respiratory: DENIES: Cough, Shortness of breath Cardiovascular: COMPLAINS OF: Palpitations, Syncope, DENIES: Chest pain, Dyspnea on Exertion, Lower Extremity Edema Gastrointestinal: DENIES: Abdominal pain, Bloody stools, Constipation, Diarrhea , Nausea, Vomiting Genitourinary: DENIES: Urinary frequency, Urgency, Dysuria Musculoskeletal: COMPLAINS OF: Joint pain, DENIES: Back pain, Neck pain Integumentary: DENIES: Pruritus, Rash Hematologic/lymphatic: DENIES: Bruising, Lymphadenopathy Immunologic/allergic: DENIES: Eczema, Urticaria Neurologic: DENIES: Headache, Localized weakness Psychiatric: DENIES: Anxiety, Depression 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 Past Surgical History Right total knee arthroplasty Reported Medications Xarelto (Rivaroxaban) 10 Mg Tab 10 Mg PO Q24H Hydrocodone-Acetaminophen 7.5-325 mg Tab 1 Tab PO Q4H PRN Walker with Front Wheels (Device) 1 Mis Mis 1 Ea .ROUTE DIRECTED 3-in-1 Bedside Toilet (Device) 1 Mis Mis 1 Ea .ROUTE DIRECTED Allergies: Coded Allergies: No Known Allergies (Verified , 08/31/16) Active Ordered Medications Current Medications Medications (Trade) Dose Ordered Sig/Christina Route Start Time Stop Time Status Last Admin (NS 250 ml Inj) 250 ml @ 15 mls/hr ONCE ONCE IV 09/03/16 12:15 09/04/16 04:54 (NS Flush) 2 ml UNSCH PRN IV 09/03/16 16:15 (NS Flush) 2 ml BID IV 09/03/16 21:00 Family History Family hx of diabetes, no heart disease/stroke/cancer. Social History Denies tobacco, alcohol, or illicit drug use. Physical Exam Vital Signs Vital Signs Date Time Temp Pulse Resp B/P Pulse Ox O2 Delivery O2 Flow Rate FiO2 09/03/16 15:03 103 18 139/67 99 Room Air 09/03/16 10:11 100 Room Air 09/03/16 10:09 98.7 104 16 133/63 100 Physical Exam GENERAL: Well-nourished, well-developed middle aged male patient in [facility]. SKIN: Warm and dry. No rash. HEAD: Normocephalic. Atraumatic. EYES: Pupils equal and round. No scleral icterus. No injection or drainage. ENT: No nasal bleeding or discharge. Mucous membranes pink and moist. NECK: Supple. Trachea midline. CARDIOVASCULAR: Regular rate and rhythm. S1, S2 noted. Soft 1/6 systolic murmur. RESPIRATORY: No accessory muscle use. Clear to auscultation. Breath sounds equal bilaterally. GASTROINTESTINAL: Abdomen soft, non-tender, nondistended. Normoactive bowel sounds x4. MUSCULOSKELETAL: No obvious deformities. Extremities without clubbing, cyanosis , or edema. Right knee with surgical dressing, CDI, entire knee minimally warm but no erythema. 2+ bilateral pedal pulses. NEUROLOGICAL: Awake and alert. No obvious cranial nerve deficits. Motor grossly within normal limits. Normal speech. PSYCHIATRIC: Appropriate mood and affect; insight and judgment normal. Laboratory Laboratory Tests Test 09/03/16 09/03/16 11:00 13:25 White Blood Count 15.6 Red Blood Count 3.57 Hemoglobin 8.2 Hematocrit 26.3 Mean Corpuscular Volume 73.6 Mean Corpuscular Hemoglobin 23.1 Mean Corpuscular Hemoglobin 31.3 Concent Red Cell Distribution Width 14.2 Platelet Count 229 Mean Platelet Volume 8.0 Neutrophils (%) (Auto) 83.3 Lymphocytes (%) (Auto) 3.1 Monocytes (%) (Auto) 11.8 Eosinophils (%) (Auto) 1.1 Basophils (%) (Auto) 0.7 Neutrophils # (Auto) 13.0 Lymphocytes # (Auto) 0.5 Monocytes # (Auto) 1.8 Eosinophils # (Auto) 0.2 Basophils # (Auto) 0.1 CBC Comment AUTO DIFF Differential Comment AUTO DIFF CONFIRMED Platelet Estimate NORMAL Platelet Morphology Comment NORMAL Urine Color LIGHT-YELLOW Urine Turbidity CLEAR Urine pH 6.0 Urine Specific [place] 1.007 Urine Protein NEG Urine Glucose (UA) NEG Urine Ketones NEG Urine Occult Blood NEG Urine Nitrite NEG Urine Bilirubin NEG Urine Urobilinogen LESS THAN 2.0 Urine Leukocyte Esterase NEG Urine RBC LESS THAN 1 Urine WBC LESS THAN 1 Microscopic Urinalysis Comment CULT NOT INDICATED Sodium Level 136 Potassium Level 4.3 Chloride Level 101 Carbon Dioxide Level 28.8 Anion Gap 6 Blood Urea Nitrogen 9 Creatinine 1.00 Estimat Glomerular Filtration 101 Rate Random Glucose 124 Calcium Level 8.8 Total Bilirubin 0.6 Aspartate Amino Transf 12 (AST/SGOT) Alanine Aminotransferase 21 (ALT/SGPT) Alkaline Phosphatase 53 Total Protein 6.9 Albumin 2.9 Blood Type O NEGATIVE Antibody Screen NEGATIVE Crossmatch Leukocyte-Reduced Red Blood Cells Blood Bank Comment Result Diagram: 09/03/16 1100 09/03/16 1100 Assessment and Plan Assessment and Plan 36-year-old male with hx of sickle cell trait (not disease), recent total knee arthroplasty [address] Rodriguez, presents with syncopal episode today. Syncope: Suspect related to symptomatic anemia, see below. Give IVF. Check orthostatic vital signs. Symptomatic anemia: Secondary to acute blood loss with recent surgery. Hemoglobin 8.2 upon arrival. Transfuse 2u pRBCs. Repeat CBC in am. S/p R TKA: Consult patient's orthopedic surgeon Dr. Rodriguez. Continue elevation, pain control with [place] prn. Leukocytosis: WBC 15.6K, likely post op, no acute signs of infection. Monitor labs. DVT Prophylaxis: holding xarelto with anemia, restart when ok with ortho. Written by Jessica Gómez, acting as scribe for Dr. Brown on 09/03/16 at 16: 26. Code Status Full Discussed Condition With Patient, Patient , ER PA Attending Statement The documentation accurately reflects the work performed [id number] by me on at 16:26. Jessica Gómez PA-C Sep 03, 2016 16:26 David Pulido MD Sep 07, 2016 13:58
[2016-09-03] MEDS ORDERED: MORPHINE SULFATE 4 MG/ML INJ IV PRN (18:30)
[2016-09-03] MEDS ORDERED: ONDANSETRON HCL 4 MG/2 ML VIAL IVP PRN (18:30)
[2016-09-03] MEDS ORDERED: ACETAMINOPHEN/HYDROcodone 325 MG/5 MG TAB PO PRN (18:30)
[2016-09-03] MEDS ORDERED: ACETAMINOPHEN/HYDROcodone 325 MG/7.5 MG TAB PO PRN (18:30)
[2016-09-03] MEDS ORDERED: ACETAMINOPHEN 325 MG TAB PO PRN (18:30)
--- NOTE | 2016-09-03 18:35 | PD.CONS ---
HPI Service Orthopedic Surgeons Consult Requested By Primary Care Physician Sesar Ball M.D. Admission Diagnosis Syncope/Anemia/S/P Right Knee Replacement Diagnoses: (1) Status post total right knee replacement Diagnosis: Principal Chief Complaint: Right Knee History of Present Illness This 36 year old man ahd a total knee arthroplasty on 08/31/2016. He was discharged home yesterday afternoon. Today, after voiding, he had a syncopal episod, falling to the ground and hitting his head. There was some very transient loss of consciousness. He was transported to the ED at [facility] and has been admitted , apparently for a transfusion. Currently, he has no vertigo or other similar complaints. He does have some right knee pain. 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 Past Surgical History No prior surgeries Allergies: Coded Allergies: No Known Allergies (Verified , 08/31/16) Active Ordered Medications Current Medications Medications (Trade) Dose Ordered Sig/Christina Route Start Time Stop Time Status Last Admin (NS 250 ml Inj) 250 ml @ 15 mls/hr ONCE ONCE IV 09/03/16 12:15 09/04/16 04:54 (NS Flush) 2 ml UNSCH PRN IV 09/03/16 16:15 IV Flush 2 ml 2 ml BID IV 09/03/16 21:00 (NS 250 ml Inj) 250 ml @ 15 mls/hr ONCE ONCE IV 09/03/16 18:00 09/04/16 10:39 UNV Reported Meds & Active Scripts Active Xarelto (Rivaroxaban) 10 Mg Tab 10 Mg PO Q24H Hydrocodone-Acetaminophen 7.5-325 mg Tab 1 Tab PO Q4H PRN Walker with Front Wheels (Device) 1 Mis Mis 1 Ea .ROUTE DIRECTED 3-in-1 Bedside Toilet (Device) 1 Mis Mis 1 Ea .ROUTE DIRECTED Family History Family hx of diabetes, no heart disease/stroke/cancer. Social History Denies tobacco, alcohol, or illicit drug use. Physical Exam Vital Signs Vital Signs Date Time Temp Pulse Resp B/P Pulse Ox O2 Delivery O2 Flow Rate FiO2 09/03/16 17:41 108 18 134/61 158 20 118/59 09/03/16 15:03 103 18 139/67 99 Room Air 09/03/16 10:11 100 Room Air 09/03/16 10:09 98.7 104 16 133/63 100 Physical Exam He is seen in Exam Room A-9 in the [facility] ED. He was sitting on the side of the stretcher/bed with both legs dangling and was quite alert tonight.The right knee wound is dressed with Primapore and has a small 10 mm area of dried blood visible at the distal 1/3 of the dressing. There is no erythema nor induration. His neurovascular status is intact. Laboratory Laboratory Tests Test 09/03/16 09/03/16 11:00 13:25 White Blood Count 15.6 Red Blood Count 3.57 Hemoglobin 8.2 Hematocrit 26.3 Mean Corpuscular Volume 73.6 Mean Corpuscular Hemoglobin 23.1 Mean Corpuscular Hemoglobin 31.3 Concent Red Cell Distribution Width 14.2 Platelet Count 229 Mean Platelet Volume 8.0 Neutrophils (%) (Auto) 83.3 Lymphocytes (%) (Auto) 3.1 Monocytes (%) (Auto) 11.8 Eosinophils (%) (Auto) 1.1 Basophils (%) (Auto) 0.7 Neutrophils # (Auto) 13.0 Lymphocytes # (Auto) 0.5 Monocytes # (Auto) 1.8 Eosinophils # (Auto) 0.2 Basophils # (Auto) 0.1 CBC Comment AUTO DIFF Differential Comment AUTO DIFF CONFIRMED Platelet Estimate NORMAL Platelet Morphology Comment NORMAL Urine Color LIGHT-YELLOW Urine Turbidity CLEAR Urine pH 6.0 Urine Specific [place] 1.007 Urine Protein NEG Urine Glucose (UA) NEG Urine Ketones NEG Urine Occult Blood NEG Urine Nitrite NEG Urine Bilirubin NEG Urine Urobilinogen LESS THAN 2.0 Urine Leukocyte Esterase NEG Urine RBC LESS THAN 1 Urine WBC LESS THAN 1 Microscopic Urinalysis Comment CULT NOT INDICATED Sodium Level 136 Potassium Level 4.3 Chloride Level 101 Carbon Dioxide Level 28.8 Anion Gap 6 Blood Urea Nitrogen 9 Creatinine 1.00 Estimat Glomerular Filtration 101 Rate Random Glucose 124 Calcium Level 8.8 Total Bilirubin 0.6 Aspartate Amino Transf 12 (AST/SGOT) Alanine Aminotransferase 21 (ALT/SGPT) Alkaline Phosphatase 53 Total Protein 6.9 Albumin 2.9 Blood Type O NEGATIVE Antibody Screen NEGATIVE Crossmatch Leukocyte-Reduced Red Blood Cells Blood Bank Comment Result Diagram: 09/03/16 1100 09/03/16 1100 Assessment & Plan Ortho Post Op Day #: 3 Problem List: (1) Status post total right knee replacement Plan: He should continue PT while in the hospital. He should be able to return home with [facility] when stable from a medical standpoint. Assessment and Plan Condition: Good. Orthopaedically stable. Apparently a transfusion has been ordered. DVT prophylaxis with CARROLL stockings, continuation of Xarelto and sequentials is recommended. PT will be ordered. Chelsi Rodriguez MD (Charles) Sep 03, 2016 18:35
--- NOTE | 2016-09-03 18:38 | HHI.FF ---
Face to Face Verification Diagnosis: (1) Status post total right knee replacement Physical Therapy Gait training Knee: Total knee, Protocol: Right, Gait training, Full weight bearing Right LE Weight Bearing: WB as tolerated Right LE Range of Motion: Active ROM (AROM, AAROM, PROM, PRE. ROM goal is 0 to 135 degrees.) Nursing Nursing: Dressing changes Dressing Changes: Daily dressing change, Coverderm/Primapore Additional Instructions Remove steristrips on postop day 14. I have seen patient Laureano Montanachuy Ledbetter Jr on 09/03/16. My clinical findings support the need for the requested home health care services because: Ltd mobility - disease progression Limited ability to care for self High risk of falls I certify that my clinical findings support that this patient is homebound because: Post-op weakness Unsteady gait/balance Unsafe to leave home unassisted Chelsi Rodriguez MD (Charles) Sep 03, 2016 18:38
[2016-09-03] MEDS: DOCUSATE SODIUM 50 MG/SENNA 8.6 MG TAB PO SCH (21:19)
[2016-09-03] MEDS: SODIUM CHLORIDE 0.9% FLUSH 5 ML FLUSH IV SCH (21:20)
[2016-09-04] VITALS (8 sets, daily range): BP systolic 117–159; BP diastolic 59–82; PULSE 84–100; RESP 16–20; TEMP 97.8–98.9; O2SAT 92–100
[2016-09-04 05:42] LABS: AUTOMATED NEUTROPHIL # 8.4 TH/MM3 (1.8-7.7); BASOPHIL # 0.1 TH/MM3 (0-0.2); BASOPHIL % 0.7 % (0.0-2.0); EOSINOPHIL # 0.5 TH/MM3 (0-0.4); EOSINOPHIL % 4.2 % (0.0-4.0); HEMATOCRIT 26.9 % (39.0-51.0); HEMO FLAGS DIFF FINAL; LYMPH % 11.3 % (9.0-44.0); LYMPHOCYTE # 1.3 TH/MM3 (1.0-4.8); MEAN CELL VOLUME 74.4 FL (80.0-100.0); MEAN CORPUSCULAR HGB CONC 33.6 % (32.0-36.0); MONO % 12.3 % (0.0-8.0); NEUT % 71.5 % (16.0-70.0); PLATELET COUNT 208 TH/MM3 (150-450); RED BLOOD COUNT 3.61 MIL/MM3 (4.50-5.90); WHITE BLOOD COUNT 11.8 TH/MM3 (4.0-11.0)
[2016-09-04 06:11] LABS: BICARBONATE 27.5 MEQ/L (21.0-32.0)
[2016-09-04] MEDS: DOCUSATE SODIUM 50 MG/SENNA 8.6 MG TAB PO SCH (11:22)
[2016-09-04] MEDS: SODIUM CHLORIDE 0.9% FLUSH 5 ML FLUSH IV SCH (11:22)
--- NOTE | 2016-09-04 11:32 | HHI.PR ---
Subjective Remarks Follow-up for syncope. The patient reports some improvement today. He states that he stood for 45 minutes today. He states he is still little dizzy when he first stood up, but then it improved. He denies any chest pain or shortness of breath. Objective Vitals Vital Signs Date Time Temp Pulse Resp B/P Pulse Ox O2 Delivery O2 Flow Rate FiO2 09/04/16 07:31 97.8 98 20 159/74 100 09/04/16 04:16 98.9 96 16 117/64 97 09/04/16 02:07 95 16 124/59 92 09/04/16 02:02 98.4 88 16 128/68 96 09/04/16 02:00 98.4 84 16 128/68 96 09/04/16 00:08 98.5 98 20 129/63 97 09/03/16 22:56 98.8 107 16 133/64 95 09/03/16 22:49 110 16 133/62 97 09/03/16 22:29 99.4 120 16 133/63 98 09/03/16 22:27 99.4 120 16 133/63 98 09/03/16 21:00 113 09/03/16 20:00 100.8 116 20 159/71 96 09/03/16 17:41 108 18 134/61 158 20 118/59 09/03/16 15:03 103 18 139/67 99 Room Air I/O 09/03/16 09/03/16 09/03/16 09/04/16 09/04/16 09/04/16 07:00 15:00 23:00 07:00 15:00 23:00 Intake Total 1701 ml Output Total 601 ml Balance 1100 ml Intake Oral 480 ml IV Total 221 ml Packed Cells 1000 ml Output Urine Total 600 ml Stool Total 1 ml # Voids 2 Result Diagram: 09/04/16 0512 09/04/16 0512 Objective Remarks GENERAL: Well-developed well-nourished. In no acute distress. SKIN: Warm and dry. No lesions noted. HEENT: Normocephalic. Pupils equal and round. Mucous membranes pink and moist. CARDIOVASCULAR: Regular rate and rhythm. No murmur appreciated. RESPIRATORY: No accessory muscle use. Clear to auscultation. Breath sounds equal bilaterally. GASTROINTESTINAL: Abdomen soft, non-tender, nondistended. Bowel sounds x4. MUSCULOSKELETAL: Right knee with surgical dressing, CDI. No clubbing or cyanosis. No edema. NEUROLOGICAL: Awake and alert. No focal neurological deficits. Moves upper and lower extremities spontaneously. Normal speech. PSYCHIATRIC: Appropriate mood and affect; insight and judgment normal. A/P Problem List: (1) Status post total right knee replacement ICD Code: Z96.651 Status: Acute Assessment and Plan 36-year-old male with hx of sickle cell trait (not disease), recent total knee arthroplasty [address] Rodriguez, presents with syncopal episode today. Syncope: Suspect related to orthostatic hypotension and possible symptomatic anemia, see below. Blood pressure initially orthostatic systolic 134 dropped to 118. Given IVF. Repeat orthostatic vital signs. PT consulted. Symptomatic anemia: Secondary to acute blood loss with recent surgery. Hemoglobin 8.2 upon arrival. Transfused 2u pRBCs. Repeat CBC shows hemoglobin 9.0. Cleared by ortho to resume Xarelto. S/p R TKA: Consulted patient's orthopedic surgeon Dr. Rodriguez. Continue elevation, pain control with [place] prn. Leukocytosis: WBC 15.6K, likely reactive post op, no acute signs of infection. WBC continues to improve, 11 K. Did have temp 100.8 overnight during transfusion, no fevers today. Monitor. DVT Prophylaxis: Xarelto. Written by Vitaliy Guzman, acting as scribe for Dr. Brown on 09/04/16 at 11:32. Discharge Planning Repeat orthostatics, give additional IVF as needed. Likely discharge later today if orthostasis continues to improve. Plan to continue home health care and home meds. Attending Statement The documentation accurately reflects the work performed [id number] by me on at 11:32. Vitaliy Guzman Sep 04, 2016 11:32 David Pulido MD Sep 07, 2016 14:08
[2016-09-04] MEDS ORDERED: RIVAROXABAN 10 MG TAB PO SCH (12:00)
[2016-09-05 10:10] LABS: HEMOGLOBIN A1a 1.5 %; HEMOGLOBIN A1b 1.3 %; HEMOGLOBIN Ao 67.6 %; HEMOGLOBIN LA1C 1.7 %
--- NOTE | 2016-09-05 13:17 | EKG ---
Date Performed: 09/03/2016 Time Performed: 10:50:46 PTAGE: 36 years EKG: Sinus rhythm POSSIBLE RIGHT VENTRICULAR CONDUCTION DELAY NONSPECIFIC T-WAVE ABNORMALITY Since previous tracing, n o significant change noted BORDERLINE ECG PREVIOUS TRACING : 08/04/2016 09.18 DOCTOR: Stephany Camp Interpretating Date/Time 09/05/2016 13:15:51
== END 2016-09-04 14:10 | disposition home or self-care (01) | DRG 812 ==
LOC: NEPB 09:43 → NEDH 12:38 → OBSVTOIN 16:06 → NEPGCP 19:06
PROVIDERS: ADMIT Hospitalist; ATTEND Hospitalist
PROC: 30233N1 Transfusion of Nonautologous Red Blood Cells into Peripheral Vein, Percutaneous Approach (ICD-10-PCS; principal; 2016-09-03)
DX: D62 Acute posthemorrhagic anemia (principal); R55 Syncope and collapse; I95.1 Orthostatic hypotension; D57.3 Sickle-cell trait; Z96.651 Presence of right artificial knee joint; Z98.890 Other specified postprocedural states; D72.829 Elevated white blood cell count, unspecified; Z79.02 Long term (current) use of antithrombotics/antiplatelets
CPT/HCPCS: 36430; 80048; 80053; 81001; 83036; 85025; 86850; 86900; 86901; 86920; 93005; 94150; J7030; J7050; P9016